=== PATIENT | female | born 1965 | race Caucasian/White ===

== ENCOUNTER 2023-07-09 21:57 | Emergency (ER) | payer BC ==
[~2023-07-09] VITALS: Ht 165.1 cm; Wt 65.8 kg
[2023-07-09] MEDS ORDERED: OXYCODONE/APAP 5-325 MG TABLET ONE (23:00)
[2023-07-09] MEDS ORDERED: OXYCODONE/APAP 5-325 MG TABLET PO ONE (23:00)
[2023-07-09] MEDS ORDERED: OXYC-128 PO (23:43)
[2023-07-10 00:27] VITALS: BP 134/71; TEMP 98.9; O2SAT 97
[2023-07-10] MEDS ORDERED: OXYC-128 PO (09:25)
== END 2023-07-10 00:05 | disposition home or self-care (01) ==
LOC: ER 22:01
DX: S52.531A Colles' fracture of right radius, initial encounter for closed fracture (principal); Z79.899 Other long term (current) drug therapy; W01.0XXA Fall on same level from slipping, tripping and stumbling without subsequent striking against object, initial encounter; Y93.89 Activity, other specified; Y92.89 Other specified places as the place of occurrence of the external cause; Y99.8 Other external cause status
CPT/HCPCS: 73110; A4606; A4663